=== PATIENT | male | born 1980 | race Hispanic/Latino ===

== ENCOUNTER 2021-01-16 12:10 | Emergency (ER) | payer SELFPAY ==
[2021-01-16 12:21] VITALS: BP 113/84; PULSE 83; RESP 18; TEMP 36.6; O2SAT 99
--- NOTE | 2021-01-16 12:42 | ED.GENADULT ---
HPI - General Adult General Chief complaint: Unspecified Stated complaint: LUQ pain starting 0800 today Time Seen by Provider: 01/16/21 12:36 Source: patient, EMS and RN notes reviewed Mode of arrival: EMS Limitations: language barrier History of Present Illness HPI narrative: Patient arrived to the ED by ambulance, friend of his speaks very well [place] telling me that patient was working on one of the warehouse, suddenly started having hyperventilation, lightheadedness, numbness all over his body and palpitation. Patient reports a lot of stress lately. Patient reports a history of anxiety and depression. Patient denies fever, chills, nausea, vomiting, chest pain, headache, or sore throat. Patient is not vaccinated for COVID-19. Patient does not take medications,, uses marijuana daily, denies smoking or drinking. Patient requested to go home and would like to leave without any further evaluation. Currently is asymptomatic and he does not know why they brought him to the emergency room. Review of Systems Review of Systems: CONSTITUTIONAL: Denies fever, chills, or sweats. EYES: Denies visual changes, redness, or discharge. ENT: Denies rhinorrhea, congestion, sore throat, or otalgia. CARDIOVASCULAR: Denies chest pain, palpitations, or edema. RESPIRATORY: Denies cough or dyspnea. GASTROINTESTINAL: Denies abdominal pain, nausea, vomiting, or diarrhea. GENITOURINARY: Denies dysuria or hematuria. SKIN: Denies rash or itching. MUSCULOSKELETAL: Denies back pain, joint pain, or myalgia. NEUROLOGIC: Denies headache, numbness, or weakness. PSYCHIATRIC: Denies anxiety or depression. Exam Narrative: General appearance: Well-developed, well-nourished Skin: Normal color Head: Normocephalic, nontraumatic Eyes: Clear conjunctiva ENT: Oropharynx normal, ears normal, nose normal Neck: Supple, nontender Chest and respiratory: Airway patent, no respiratory distress, no accessory muscle use Heart: Regular rate/rhythm Abdomen: Soft, nontender, no organomegaly, quiet bowel sounds Vascular: Normal peripheral pulses, normal capillary refill. Musculoskeletal: Normal range of motion, nontender back Neurologic: Alert and oriented ?3, [employer] is normal as tested, no gross motor deficit Course Course Emergency Course: Hyperventilation syndrome is my concern. Labs, EKG, chest x-ray, ordered. Vital Signs Vital signs: Vital Signs Temperature 36.6 C 01/16/21 12:21 Pulse Rate 83 01/16/21 12:21 Respiratory Rate 18 01/16/21 12:21 Blood Pressure 113/84 01/16/21 12:21 Pulse Oximetry 99 01/16/21 12:21 Temperature 36.6 C 01/16/21 12:21 Pulse Rate 83 01/16/21 12:21 Respiratory Rate 18 01/16/21 12:21 Blood Pressure 113/84 01/16/21 12:21 Pulse Oximetry 99 01/16/21 12:21 Medical Decision Making Vital Signs Vital Signs: Vital Signs Temperature 36.6 C 01/16/21 12:21 Pulse Rate 83 01/16/21 12:21 Respiratory Rate 18 01/16/21 12:21 Blood Pressure 113/84 01/16/21 12:21 Pulse Oximetry 99 01/16/21 12:21 Temperature 36.6 C 01/16/21 12:21 Pulse Rate 83 01/16/21 12:21 Respiratory Rate 18 01/16/21 12:21 Blood Pressure 113/84 01/16/21 12:21 Pulse Oximetry 99 01/16/21 12:21 Discharge Plan Discharge Clinical Impression: Anxiety-like symptoms, Acute hyperventilation syndrome, Palpitation, Left against medical advice Patient Disposition: Home, Self-Care Condition: Stable Instructions: Antibiotic Form, Heart Palpitations (ED), Hyperventilation (ED), Against Medical Advice (ED), Anxiety (ED) Additional Instructions: Return if symptoms are worsening , call your family physician for appointment, take Tylenol as as
== END 2021-01-16 13:07 | disposition left against medical advice (07) ==
PROVIDERS: Emergency Provider Emergency Medicine
DX: F41.9 Anxiety disorder, unspecified (principal); F45.8 Other somatoform disorders; R00.2 Palpitations
CPT/HCPCS: 99283